=== PATIENT | male | born 1995 | race Caucasian/White ===

== ENCOUNTER 2016-07-27 15:26 | Emergency (ER) | payer OTHER ==
[~2016-07-27] VITALS: Ht 185.4 cm; Wt 55.3 kg
[2016-07-27 17:28] LABS: HEMATOCRIT 44.4 % (38.0-50.0); MCH 30.4 PG (29.0-34.0); MCHC 34.7 G/DL (30.0-36.0); MCV 87.7 FL (86-99); MEAN PLAT.VOLUME 9.4 uM^3 (9.0-12.4); PLATELET COUNT 337 K/uL (156-360); RBC DIS.WIDTH-CV 11.9 % (11.8-14.6); RBC DIS.WIDTH-SD 38.4 % (39-53); RED BLOOD COUNT 5.06 M/uL (4.00-5.50); WHITE BLOOD COUNT 10.7 K/uL (4.1-10.2)
[2016-07-27 17:37] LABS: CHLORIDE 104 mEq/L (99-109); POTASSIUM 3.7 mEq/L (3.7-5.4); SODIUM 141 mEq/L (136-147)
[2016-07-27 17:38] LABS: GLUCOSE 78 mg/dL (70-99)
[2016-07-27 17:40] LABS: ANION GAP 14 MEQ/L (2-14)
[2016-07-27 17:42] LABS: GFR ESTIMATE (CALCULATED) > 59 mL/min/
[2016-07-27 17:43] LABS: UREA NITROGEN (BUN) 12 mg/dL (9-23)
[2016-07-27] MEDS ORDERED: NORCO 5/3251 TABLET PO (19:50)
[2016-07-27] MEDS ORDERED: NAPROSYN500 MG PO (19:50)
[2016-07-27] MEDS ORDERED: BACTRIM,SEPT1 TABLET PO (19:50)
[2016-07-27 20:15] VITALS: BP 132/74
== END 2016-07-27 20:31 | disposition home or self-care (01) ==
LOC: EME 15:26
PROVIDERS: Nurse Practitioner Family
PROC: 2W3EX1Z Immobilization of Right Hand using Splint (ICD-10-PCS; principal; 2016-07-27)
DX: S62.91XA Unspecified fracture of right hand, initial encounter for closed fracture (principal); W22.09XA Striking against other stationary object, initial encounter; F17.200 Nicotine dependence, unspecified, uncomplicated
CPT/HCPCS: 73201; 80048; 83605; 85027; 87040; 99281; 99285; J2270; J2543; J7030